=== PATIENT | female | born 1935 | race Caucasian/White ===

== ENCOUNTER 2018-03-05 09:07 | Outpatient (CLI) | payer MEDICARE, BC ==
--- NOTE | 2018-03-05 13:18 | MRI ---
MRI PELVIS AND LEFT HIP PERFORMED WITHOUT CONTRAST ENHANCEMENT: Date: 03/05/18 HISTORY: Bilateral groin pain, more on the left side. Left leg weakness. 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 Marrow edema change is seen in a symmetric fas hion in both right and left sides of the sacrum with sacral fractures which basically parallel the SI joints. Changes are compatible with insufficiency type fractures. There is also left-sided parasymph yseal fracture of the superior and inferior pubic rami. There is moderate edema change in this area, with edema extending into the pectineus and adductor muscle groups in this region. There are more sub tle edema changes in a right parasymphyseal location which would suggest possibly developing insuffic iency type fracture in this region. The visualized intrapelvic contents appear unremarkable. IMPRESSION: 1. Insufficiency type fractures of both the right and left sides of the sacrum, as well as left-side d parasymphyseal fractures, also probably insufficiency-type fractures and some mild edema change dev eloping along the right side of the symphysis, probably some stress reactive and an early fracture in this region. Associated with these findings are edema changes within the adductor muscle groups bila terally, much more prominently on the left, with edema change extending into the left pectineus. 2. Mild hamstring tendinopathy. 3. 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 POS: RAMIRO
== END 2018-03-05 09:08 | disposition home or self-care (01) ==
LOC: TBSIIMAG 09:07
PROVIDERS: ATTEND Family Medicine
DX: M25.552 Pain in left hip (principal); M54.16 Radiculopathy, lumbar region; M16.0 Bilateral primary osteoarthritis of hip; M48.58XA Collapsed vertebra, not elsewhere classified, sacral and sacrococcygeal region, initial encounter for fracture; M76.892 Other specified enthesopathies of left lower limb, excluding foot
CPT/HCPCS: 72195